=== PATIENT | female | born 1985 | race Caucasian/White ===

== ENCOUNTER 2021-09-13 12:09 | Emergency (ER) | payer MEDICAID ==
--- NOTE | 2021-09-13 12:52 | XRAY Report ---
PROCEDURE: Chest 2 View X-Ray INDICATIONS: chest pain TECHNIQUE: 2 view(s) of the chest. COMPARISON: None. FINDINGS: Surgical changes and devices: None. Lungs and pleura: No pleural effusions or pneumothorax. Lungs are clear. Mediastinum: Mediastinal contours are normal. Heart size is normal. Bones and chest wall: No significant rib abnormality is seen. Mild dextroconvex scoliotic curvature is seen. No suspicious bony abnormalities. Soft tissues appear unremarkable. IMPRESSION: No significant plain film abnormality is seen. Reviewed by: Lon Arguello MD on 09/13/2021 12:51 PM PDT Approved by: Lon Arguello MD on 09/13/2021 12:51 PM PDT Station ID: [id number]
[2021-09-13 13:08] LABS: BASOPHILS # (AUTO) 0.1 10^3/uL (0.0-0.1); BASOPHILS % (AUTO) 0.5 %; EOSINOPHILS # (AUTO) 0.1 10^3/uL (0.0-0.7); EOSINOPHILS % (AUTO) 0.6 %; HCT - HEMATOCRIT 41.1 % (37.0-47.0); HGB - HEMOGLOBIN 13.8 g/dL (12.0-16.0); LYMPHOCYTES # (AUTO) 2.3 10^3/uL (1.5-3.5); LYMPHOCYTES % (AUTO) 18.2 %; MEAN CORPUSCULAR HEMOGLOBIN 29.7 pg (27.0-31.0); MEAN CORPUSCULAR HGB CONC 33.6 g/dL (32.0-36.0); MEAN CORPUSCULAR VOLUME 88.6 fL (81.0-99.0); MEAN PLATELET VOLUME 10.4 fL (7.9-10.8); MONOCYTES # (AUTO) 0.8 10^3/uL (0.0-1.0); MONOCYTES % (AUTO) 6.1 %; NEUTROPHILS # (AUTO) 9.3 10^3/uL (1.5-6.6); NEUTROPHILS % (AUTO) 74.4 %; PLT - PLATELET COUNT 386 10^3/uL (130-450); RED BLOOD COUNT 4.64 10^6/uL (4.20-5.40); RED CELL DISTRIBUTION WIDTH 13.2 % (12.0-15.0); WHITE BLOOD COUNT 12.5 x10^3/uL (4.8-10.8)
[2021-09-13 13:12] LABS: ALBUMIN 4.3 g/dL (3.2-5.5); ALBUMIN/GLOBULIN RATIO 1.2 (1.0-2.2); BILIRUBIN,TOTAL 0.3 mg/dL (0.2-1.0); CREATININE 0.5 mg/dL (0.4-1.0); TOTAL PROTEIN 7.8 g/dL (6.7-8.2)
[2021-09-13 13:33] LABS: CALCIUM 9.3 mg/dL (8.5-10.3); POTASSIUM 4.4 mmol/L (3.5-5.0)
[2021-09-13] MEDS ORDERED: BENZONATATE 100 MG CAPSULE PO STA (13:33)
--- NOTE | 2021-09-13 13:34 | ED Physician Documentation ---
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 She has been on Eliquis in the past but is no longer. She has been coughing for a month, nonproductive but over the last few days to week has developed pleuritic right-sided back pain radiating under the right breast. Is worse with coughing or certain movements. She denies pedal edema or calf pain. She is not currently anticoagulated. Given her history of heroin abuse declines any pain medication here, she has been using lidocaine patches and Aleve at home with modest relief. No possibility of . Review of Systems Ten Systems: 10 systems reviewed and negative Constitutional: reports: Reviewed and negative Nose: reports: Reviewed and negative Respiratory: reports: Dyspnea, Cough PD PAST MEDICAL HISTORY - Past Medical History Past Medical History: Yes Cardiovascular: Deep vein thrombosis - Present Medications Home Medications: Ambulatory Orders Medication Instructions Recorded Confirmed Albuterol Sulf [Ventolin Hfa 1 - 2 puffs INH Q4HR PRN #1 gm 09/13/21 Inhaler] Benzonatate [Tessalon] 200 mg PO QID PRN #20 cap 09/13/21 Buspirone HCl 30 mg PO DAILY 09/13/21 09/13/21 Lidocaine Patch 5% [Lidoderm Patch] 1 each TOP DAILY 09/13/21 09/13/21 Prazosin HCl [Minipress] 5 mg PO HS 09/13/21 09/13/21 QUEtiapine [SEROquel] 100 mg PO QPM 09/13/21 09/13/21 Sertraline HCl 200 mg ORAL DAILY 09/13/21 09/13/21 - Allergies Allergies/Adverse Reactions: Allergies Allergy/AdvReac Type Severity Reaction Status Date / Time No Known Drug Allergies Allergy Verified 09/13/21 13:50 - Social History Does the pt have substance abuse?: Yes Substance Use and Type: Heroin (She has a history of heroin abuse in remission, 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.) PD ED PE NORMAL - Vitals Vital signs reviewed: Yes - General General: Alert and oriented X 3, No acute distress - HEENT HEENT: PERRL, EOMI - Neck Neck: Supple, no meningeal sign, No bony TTP - Cardiac Cardiac: RRR, No murmur - Respiratory Respiratory: Other (Splinting her breaths but breath sounds are clear and nonlabored, very occasional cough.) - Abdomen Abdomen: Non tender - Extremities Extremities: No edema, No calf tenderness / cord - Neuro Neuro: Alert and oriented X 3, Normal speech Results - Vitals Vitals: Vital Signs - 24 hr 09/13/21 09/13/21 12:19 13:34 Temperature 36.8 C Heart Rate 90 73 Respiratory 16 14 Rate Blood Pressure 132/97 H 153/71 H O2 Saturation 98 98 Oxygen O2 Source Room air - EKG (time done) 1226 Rate: Rate (enter#) (78) Rhythm: NSR [place]: Normal Intervals: Normal [place] QRS: Normal Ischemia: Normal ST segments - Labs Labs: Laboratory Tests 09/13/21 09/13/21 09/13/21 12:56 12:56 12:56 WBC 12.5 H RBC 4.64 Hgb 13.8 Hct 41.1 MCV 88.6 MCH 29.7 MCHC 33.6 RDW 13.2 Plt Count 386 MPV 10.4 Neut # (Auto) 9.3 H Lymph # (Auto) 2.3 [place] # (Auto) 0.8 Eos # (Auto) 0.1 Baso # (Auto) 0.1 Absolute Nucleated RBC 0.00 Nucleated RBC % 0.0 D-Dimer 282.1 H Sodium 135 Potassium 4.4 Chloride 106 Carbon Dioxide 23 Anion Gap 6.0 BUN 19 Creatinine 0.5 Estimated GFR (MDRD) 138 Glucose 106 H Calcium 9.3 Total Bilirubin 0.3 AST 13 ALT 16 Alkaline Phosphatase 48 Troponin I High Sens Total Protein 7.8 Albumin 4.3 Globulin 3.5 Albumin/Globulin Ratio 1.2 Lipase 46 09/13/21 12:56 WBC RBC Hgb Hct MCV MCH MCHC RDW Plt Count MPV Neut # (Auto) Lymph # (Auto) [place] # (Auto) Eos # (Auto) Baso # (Auto) Absolute Nucleated RBC Nucleated RBC % D-Dimer Sodium Potassium Chloride Carbon Dioxide Anion Gap BUN Creatinine Estimated GFR (MDRD) Glucose Calcium Total Bilirubin AST ALT Alkaline Phosphatase Troponin I High Sens 2.8 Total Protein Albumin Globulin Albumin/Globulin Ratio Lipase Procedures - General procedure General procedure: She was difficult for IV access, couple of nurses had tried and failed. I personally placed a 20-gauge IV in the right antecubital fossa with real-time ultrasound guidance after ChloraPrep the flushed and priscila well. Unfortunately the above IV infiltrated while in CT the first time and had to be replaced, I personally placed a longer 22-gauge IV in the left bicep with real- time ultrasound guidance. We knew that this IV would be a little limited in the ability to do an angiogram but her veins are quite deep, and it seemed better to get at least a contrast CT with some view of the pulmonary arterial vasculature than none. PD MEDICAL DECISION MAKING - ED course ED course: 36-year-old woman with ongoing cough now with pleuritic right-sided chest pain. She has a history of DVT and is not currently anticoagulated. Initial work-up shows nonischemic EKG, modest leukocytosis and a normal troponin the elevated of a very modestly elevated D-dimer. After some difficulty due to getting an IV and the initial IV infiltrating, CT angiography of the chest was done showing no PE but she did have small bilateral pleural effusions and I suspect she has pleurisy related to her coughing. She is already on an NSAID and advised to continue this and we will add Tessalon and albuterol. Departure - Departure Disposition: 01 Home, Self Care Clinical Impression: Chest pain, Pleurisy Condition: Good Record reviewed to determine appropriate education?: Yes Instructions: ED Chest Pain Pleurisy, ED Effusion Pleural Prescriptions: Albuterol Sulf [Ventolin Hfa Inhaler] 1 - 2 puffs INH Q4HR PRN #1 gm PRN Reason: Shortness Of Air/Wheezing Benzonatate [Tessalon] 200 mg PO QID PRN #20 cap PRN Reason: Cough Comments: As discussed, the CAT scan did not show a blood clot but you do have a little fluid outside of the lung there especially on the right called a pleural effusion. I suspect given your symptoms that this is related to pleurisy from the coughing. You can continue to take Aleve per package instructions for that, and to that I am adding something for the cough that is nonaddictive and a inhaler that may help open up your airways. Return if worsening and follow-up with your primary care physician, next available appointment.
--- NOTE | 2021-09-13 16:15 | CT Report ---
PROCEDURE: CHEST W INDICATIONS: Chest Pain, PE Suspected CONTRAST: IV CONTRAST: Optiray 320 ml: 100 PO CONTRAST: *NO PO CONTRAST TECHNIQUE: After the administration of intravenous contrast, 2 mm axial images were acquired from the pulmonary apices to the posterior costophrenic angles during the arterial phase. In addition, 1 mm lung kernel and 5 mm soft tissue kernel reconstructions were performed. 3-dimensional coronal oblique maximum int ensity projection (MIP) reformats, 8 mm axial MIP, and 5 mm coronal and sagittal MPR reformats were t hen performed through the thorax. For radiation dose reduction, the following was used: automated exp osure control, adjustment of mA and/or kV according to patient size. COMPARISON: Chest radiograph on the same day. FINDINGS: Image quality: Excellent. Pulmonary arteries: Pulmonary arteries are normal in size, and demonstrate no intraluminal filling d efects to suggest central pulmonary embolism. Lungs and pleura: Small bilateral pleural effusion with adjacent dependent atelectasis in posterior a spect of bilateral lower lobes are seen. No pneumothorax. Central and peripheral airways are patent. Mediastinum: Heart size is normal, without pericardial effusion. No mediastinal or hilar adenopathy . Thoracic aorta is normal in caliber and enhancement. Esophagus is normal in caliber, with a small hiatal hernia. Bones and chest wall: No suspicious bony lesions. Ribs and thoracic spine appear intact throughout. No axillary or supraclavicular adenopathy. The thyroid is normal in size and there are no incident al findings. Abdomen: Visualized upper abdominal solid organs appear normal in the early arterial phase of enhanc ement. IMPRESSION: 1. No evidence of pulmonary emboli. No thoracic aortic aneurysm or gross dissection. 2. Small bilateral pleural effusion with adjacent atelectasis in posterior aspect of bilateral lower lobes. No definite focal infiltrate. No pneumothorax. Airway is patent. 3. No mediastinal or hilar lymphadenopathy by size criteria. Small hiatal hernia. CLINICAL RECOMMENDATION STATEMENTS: In patients <35 years with an ITN detected on CT, MRI, or extrathyroidal ultrasound, the Committee re commends further evaluation with dedicated thyroid ultrasound if the nodule is "e1 cm and has no susp icious imaging features, and if the patient has normal life expectancy. In patients "e35 years with an ITN detected on CT, MRI, or extrathyroidal ultrasound, the Committee r ecommends further evaluation with dedicated thyroid ultrasound if the nodule is "e1.5 cm and has no s uspicious imaging features, and if the patient has normal life expectancy. (ACR, 2014) Reviewed by: Garry Vazquez MD on 09/13/2021 3:14 PM AKJONO Approved by: Garry Vazquez MD on 09/13/2021 3:14 PM AKJONO Station ID: [id number]
[2021-09-13 16:23] VITALS: BP 123/57
== END 2021-09-13 16:30 | disposition home or self-care (01) ==
LOC: ED 12:09
DX: R09.1 Pleurisy (principal); F11.11 Opioid abuse, in remission
CPT/HCPCS: 36415; 71046; 71260; 80053; 83690; 84484; 85025; 85379; 93005; 99284; A9270; Q9967

== ENCOUNTER 2023-03-08 10:17 | Outpatient (CLI) | payer MEDICAID, OTHER | END 2023-03-08 10:18 | disposition EMS.NT | LOC: EMS 10:17 | DX: Z04.1 Encounter for examination and observation following transport accident (principal) ==